=== PATIENT | male | born 1960 | race Caucasian/White ===

== ENCOUNTER 2020-03-06 22:22 | Emergency (ER) | payer OTHER ==
[~2020-03-06] VITALS: Ht 182.9 cm; Wt 82.5 kg
[~2020-03-06 22:22] MED LIST: ADVAIR 100-501 EACH INH; AMITRIPTYLINE H10 MG PO; COREG12.5 MG PO; DIAZEPAM5 MG PO; FLOVENT DISKU250 MCG INH; HUMALOG100 UNIT/1 SQ; IBUPROFEN800 MG PO; LISINOPRIL-HCT1 EAC1 PO; METFORMIN HCL500 M2 PO; NEURONTIN800 MG PO; NORCO 5-325 TA1 EACH PO; NORCO 7.5-3251 EACH PO; NOVOLOG MI100 UNIT/1 SQ; OMEPRAZOLE20 MG PO; PROMETHAZINE HC25 M1 PO; QVAR7.3 G1 INH; VENTOLIN HFA18 GM INH; VITAMIN D250000 UNIT PO
--- OUTSIDE RECORDS SUMMARY | 2020-03-06 22:26 | XMS ---
PreManage Notification: CLARK NAIK Security Computer Network Engineer Events No recent Security Events currently on file CRITERIA MET - [facility] CARE PROVIDERS There are no care providers on record at this time. Sriram has no Care Guidelines for this patient. Myron VISIT COUNT (12 MO.) 1 CATRACHITA [facility] TOTAL 1 NOTE: Visits indicate total known visits. ED/C VISIT TRACKING (12 MO.) 03/06/2020 22:23 [facility] Nava [place] TYPE: Emergency COMPLAINT: - SHORTNESS OF BREATH INPATIENT VISIT TRACKING (12 MO.) No inpatient visits to display in this time frame [id number]
== END 2020-03-06 23:15 | disposition left against medical advice (07) ==
LOC: ED 22:22
DX: R04.2 Hemoptysis (principal); R06.02 Shortness of breath; J44.9 Chronic obstructive pulmonary disease, unspecified; E11.40 Type 2 diabetes mellitus with diabetic neuropathy, unspecified; I10 Essential (primary) hypertension; F17.200 Nicotine dependence, unspecified, uncomplicated; Z88.0 Allergy status to penicillin; Z79.899 Other long term (current) drug therapy; Z79.4 Long term (current) use of insulin
CPT/HCPCS: 80053; 85025; 85610; 85730; 99283

== ENCOUNTER 2020-03-13 18:40 | Emergency (ER) | payer OTHER ==
[~2020-03-13] VITALS: Ht 182.9 cm; Wt 82.5 kg
--- OUTSIDE RECORDS SUMMARY | 2020-03-13 18:42 | XMS ---
PreManage Notification: CLARK NAIK Security Last Turner Events No recent Security Events currently on file CRITERIA MET - [facility] - 2 Visits in 30 Days CARE PROVIDERS RUDDY APARICIO Nurse Practitioner: 03/07/2020-Current PHONE: [phone] Sriram has no Care Guidelines for this patient. Care History Medical/Surgical 03/07/2020 [facility] - Patient is currently established with [facility]. If patient is seen in the ED during business hours. Please contact CHWs at [facility]. Care Recommendation: If this patient has had 5 or more Emergency Department visits in the last 12 months.\T\nbsp; Patient will require education on the scope and purpose of the ED as an acute care provider not a Primary Care Provider and should not be utilized for chronic conditions.\T\nbsp; These are guidelines and the provider should exercise clinical judgment when providing care. E.D. VISIT COUNT (12 MO.) 2 [facility] TOTAL 2 NOTE: Visits indicate total known visits. ED/UCC VISIT TRACKING (12 MO.) 03/13/2020 18:40 [facility] Nava [place] TYPE: Emergency COMPLAINT: - POSSIBLE LOW BLOOD SUGAR 03/06/2020 22:23 [facility] N[facility] [place] TYPE: Emergency COMPLAINT: - SHORTNESS OF BREATH DIAGNOSES: - Other intermediate frame tender (current) drug therapy - Hemoptysis - Type 2 diabetes mellitus with diabetic neuropathy, unspecifie - Nicotine dependence, unspecified, uncomplicated - Shortness of breath - Essential (primary) hypertension - Chronic obstructive pulmonary disease, unspecified - Allergy status to penicillin - custodial (current) use of insulin INPATIENT VISIT TRACKING (12 MO.) No inpatient visits to display in this time frame [id number]
== END 2020-03-13 22:08 | disposition home or self-care (01) ==
LOC: ED 18:40
DX: S06.0X9A Concussion with loss of consciousness of unspecified duration, initial encounter (principal); F10.129 Alcohol abuse with intoxication, unspecified; E11.65 Type 2 diabetes mellitus with hyperglycemia; E11.40 Type 2 diabetes mellitus with diabetic neuropathy, unspecified; I10 Essential (primary) hypertension; J44.9 Chronic obstructive pulmonary disease, unspecified; F17.200 Nicotine dependence, unspecified, uncomplicated; Z88.0 Allergy status to penicillin; Z91.14 Patient's other noncompliance with medication regimen; Z79.899 Other long term (current) drug therapy; Z79.4 Long term (current) use of insulin; V23.4XXA Motorcycle driver injured in collision with car, pick-up truck or van in traffic accident, initial encounter
CPT/HCPCS: 70450; 71046; 80053; 81001; 82010; 82800; 85025; 99284-25; G0480; J7030

== ENCOUNTER 2020-04-23 11:59 | Emergency (ER) | payer OTHER ==
[~2020-04-23] VITALS: Ht 182.9 cm; Wt 82.5 kg
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
== END 2020-04-23 14:46 | disposition home or self-care (01) ==
LOC: ED 11:59
PROC: 0HQ1XZZ Repair Face Skin, External Approach (ICD-10-PCS; principal; 2020-04-23)
DX: S01.81XA Laceration without foreign body of other part of head, initial encounter (principal); I10 Essential (primary) hypertension; E11.40 Type 2 diabetes mellitus with diabetic neuropathy, unspecified; J44.9 Chronic obstructive pulmonary disease, unspecified; F17.200 Nicotine dependence, unspecified, uncomplicated; Z23 Encounter for immunization; Z88.0 Allergy status to penicillin; V27.4XXA Motorcycle driver injured in collision with fixed or stationary object in traffic accident, initial encounter
CPT/HCPCS: 12013; 70450; 73030; 73080; 90471; 90715; 99284-25; A9270

== ENCOUNTER 2020-12-01 13:34 | Emergency (ER) | payer OTHER ==
[~2020-12-01] VITALS: Ht 182.9 cm; Wt 82.6 kg
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
[2020-12-01] MEDS ORDERED: JARDIANCE25 MG PO (13:51)
[2020-12-01] MEDS ORDERED: OMEPRAZOLE40 MG PO (13:52)
[2020-12-01] MEDS ORDERED: GABAPENTIN600 MG PO (13:52)
[2020-12-01] MEDS ORDERED: LISINOPRIL20 MG PO (13:52)
[2020-12-01] MEDS ORDERED: CLEOCIN HCL300 MG PO (17:40)
--- NOTE | 2020-12-02 15:39 | EKG ---
[facility] [address] [facility] [place], [place] [address] Signed Normal sinus rhythm Septal infarct , age undetermined T wave abnormality, consider anterolateral ischemia Abnormal ECG No previous ECGs available Confirmed by KAUR MANJARREZ DO ([id number]) on 12/02/2020 3:39:45 PM Electronically Signed By: KAUR MANJARREZ DO 12/02/20 1539 PATIENT NAME: CLARK NAIK Electrocardiogram DATE OF : 62 PHYSICIAN: KAUR MANJARREZ DO REPORT #: [id number] REPORT IS CONFIDENTIAL AND NOT TO BE RELEASED WITHOUT AUTHORIZATION
== END 2020-12-01 17:45 | disposition home or self-care (01) ==
LOC: ED 13:34
DX: L03.116 Cellulitis of left lower limb (principal); L03.115 Cellulitis of right lower limb; E83.42 Hypomagnesemia; J44.9 Chronic obstructive pulmonary disease, unspecified; E10.40 Type 1 diabetes mellitus with diabetic neuropathy, unspecified; I10 Essential (primary) hypertension; F17.200 Nicotine dependence, unspecified, uncomplicated; Z88.0 Allergy status to penicillin; Z79.899 Other long term (current) drug therapy
CPT/HCPCS: 71045; 73630; 80053; 83735; 83880; 84484; 85025; 93005; 93010; 96365; 99284-25; J0696

== ENCOUNTER 2020-12-11 13:43 | Emergency (ER) | payer OTHER ==
[~2020-12-11] VITALS: Ht 182.9 cm; Wt 82.5 kg
[~2020-12-11 13:43] MED LIST changes: +CLEOCIN HCL300 MG PO; +GABAPENTIN600 MG PO; +JARDIANCE25 MG PO; +LISINOPRIL20 MG PO; +OMEPRAZOLE40 MG PO
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
== END 2020-12-11 21:22 | disposition home or self-care (01) ==
LOC: ED 13:43
DX: E11.65 Type 2 diabetes mellitus with hyperglycemia (principal); R60.0 Localized edema; M62.81 Muscle weakness (generalized); J44.9 Chronic obstructive pulmonary disease, unspecified; E11.40 Type 2 diabetes mellitus with diabetic neuropathy, unspecified; I10 Essential (primary) hypertension; F17.200 Nicotine dependence, unspecified, uncomplicated; Z88.0 Allergy status to penicillin; Z79.899 Other long term (current) drug therapy; Z79.4 Long term (current) use of insulin
CPT/HCPCS: 70450; 80053; 81001; 85025; 99285-25

== ENCOUNTER 2020-12-31 22:34 | Emergency (ER) | payer OTHER ==
[~2020-12-31] VITALS: Ht 182.9 cm; Wt 82.5 kg
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
== END 2021-01-01 01:22 | disposition home or self-care (01) ==
LOC: ED 22:34
DX: F10.129 Alcohol abuse with intoxication, unspecified (principal); E83.51 Hypocalcemia; J44.9 Chronic obstructive pulmonary disease, unspecified; E11.40 Type 2 diabetes mellitus with diabetic neuropathy, unspecified; I10 Essential (primary) hypertension; Z79.4 Long term (current) use of insulin; F17.200 Nicotine dependence, unspecified, uncomplicated; Z88.0 Allergy status to penicillin; Z79.899 Other long term (current) drug therapy
CPT/HCPCS: 70450; 80053; 85025; 99284-25

== ENCOUNTER 2021-03-18 10:48 | Observation (INO) | payer OTHER ==
[~2021-03-18] VITALS: Ht 182.9 cm; Wt 74.4 kg
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
[2021-03-18] MEDS ORDERED: AMITRIPTYLINE H50 MG PO (22:42)
[2021-03-19] MEDS ORDERED: VENTOLIN HFA18 GM INH (11:09)
[2021-03-19] MEDS ORDERED: ADVAIR 250-501 EACH INH (11:10)
[2021-03-20] MEDS ORDERED: ELIQUIS5 MG PO ×2 (10:34→13:01)
[2021-03-20] MEDS ORDERED: NICODERM CQ1 EAC1 TD (10:35)
[2021-03-24] MEDS ORDERED: BACTRIM DS TAB1 EACH PO (15:29)
== END 2021-03-20 12:30 | disposition home or self-care (01) ==
LOC: ED 10:48 → CCU 10:49 → MS 03-19 11:40
PROVIDERS: ADMIT Internal Medicine; ATTEND Internal Medicine
DX: I82.491 Acute embolism and thrombosis of other specified deep vein of right lower extremity (principal); K52.9 Noninfective gastroenteritis and colitis, unspecified; D53.9 Nutritional anemia, unspecified; E11.65 Type 2 diabetes mellitus with hyperglycemia; E11.42 Type 2 diabetes mellitus with diabetic polyneuropathy; Z20.822 Contact with and (suspected) exposure to COVID-19; F10.288 Alcohol dependence with other alcohol-induced disorder; G62.1 Alcoholic polyneuropathy; K70.0 Alcoholic fatty liver; I10 Essential (primary) hypertension; J44.9 Chronic obstructive pulmonary disease, unspecified; K21.9 Gastro-esophageal reflux disease without esophagitis; G89.4 Chronic pain syndrome; R29.6 Repeated falls; F17.200 Nicotine dependence, unspecified, uncomplicated; Z79.899 Other long term (current) drug therapy; Z88.0 Allergy status to penicillin; Z79.84 Long term (current) use of oral hypoglycemic drugs
CPT/HCPCS: 70450; 74174; 80053; 83735; 84100; 85025; 85610; 85730; 87177; 93971; 96365; 96366; 96372; 97116; 97162; 97166; 99284-25; C9803; G0378; J1650; J1815; J3475; J7121; Q9967; U0003

== ENCOUNTER 2021-03-31 12:51 | Emergency (ER) | payer OTHER ==
[~2021-03-31] VITALS: Ht 182.9 cm; Wt 74.4 kg
[~2021-03-31 12:51] MED LIST changes: +ADVAIR 250-501 EACH INH; +AMITRIPTYLINE H50 MG PO; +BACTRIM DS TAB1 EACH PO; +ELIQUIS5 MG PO; +NICODERM CQ1 EAC1 TD
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
--- NOTE | 2021-04-01 07:17 | EKG ---
[facility] [address] [facility] [place] [address] Signed Normal sinus rhythm Left axis deviation Septal infarct (cited on or before 01-DEC-2020) Abnormal ECG When compared with ECG of 01-DEC-2020 14:26, T wave inversion no longer evident in Anterolateral leads Confirmed by JUDY HOSKINS MD ([id number]) on 04/01/2021 7:17:04 AM Electronically Signed By: JUDY HOSKINS MD 04/01/21 0717 PATIENT NAME: CLARK NAIK Electrocardiogram DATE OF : 62 PHYSICIAN: JUDY HOSKINS MD REPORT #: [id number] REPORT IS CONFIDENTIAL AND NOT TO BE RELEASED WITHOUT AUTHORIZATION
== END 2021-03-31 19:00 | disposition home or self-care (01) ==
LOC: ED 12:51
DX: S22.41XA Multiple fractures of ribs, right side, initial encounter for closed fracture (principal); I82.401 Acute embolism and thrombosis of unspecified deep veins of right lower extremity; E87.1 Hypo-osmolality and hyponatremia; W01.10XA Fall on same level from slipping, tripping and stumbling with subsequent striking against unspecified object, initial encounter; J44.9 Chronic obstructive pulmonary disease, unspecified; E11.40 Type 2 diabetes mellitus with diabetic neuropathy, unspecified; I10 Essential (primary) hypertension; F17.200 Nicotine dependence, unspecified, uncomplicated; Z88.0 Allergy status to penicillin; Z79.899 Other long term (current) drug therapy
CPT/HCPCS: 70450; 71045; 72100; 73560; 80053; 81001; 83690; 84484; 85025; 93005; 93010; 93971; 99284-25; U0003

== ENCOUNTER 2021-06-05 10:04 | Observation (INO) | payer OTHER ==
[~2021-06-05] VITALS: Ht 182.9 cm; Wt 69.0 kg
--- OUTSIDE RECORDS SUMMARY | 2021-06-05 10:06 | XMS ---
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 Details: AMA CRITERIA MET - [facility] - Has Care Guidelines - [facility] - 2 Visits in 30 Days - PDMP - 6 ED Visits in 6 Months CARE PROVIDERS RUDDY APARICIO Nurse Practitioner: Family 03/07/2020-Current PHONE: [phone] [place] BE [facility] 04/23/2020-Current PHONE: [phone] Sriram has no Care Guidelines for this [...] ON 06/04/2020. [place] VISIT COUNT (12 MO.) 7 [facility] TOTAL 7 NOTE: Visits indicate total known visits. ED/UCC VISIT TRACKING (12 MO.) 06/05/2021 10:05 [facility] [place] TYPE: Emergency COMPLAINT: - R THUMB WOUND 06/04/2021 15:04 [facility] [place] TYPE: Emergency COMPLAINT: - R THUMB INJURY 03/31/2021 12:51 [facility] [place] TYPE: Emergency COMPLAINT: - FALL/WEAKNESS DIAGNOSES: - Multiple fractures of ribs, right side, initial encounter for closed fracture - Fall on same level from slipping, tripping and stumbling with subsequent striking against unspecified object, initial encounter - Type 2 diabetes mellitus with diabetic neuropathy, unspecified - Other half-way (current) drug therapy - Allergy status to penicillin - Chronic obstructive pulmonary disease, unspecified - Nicotine dependence, unspecified, uncomplicated - Essential (primary) hypertension - Hypo-osmolality and hyponatremia - Acute embolism and thrombosis of unspecified deep veins of right lower extremity 03/18/2021 10:48 [facility] [place] TYPE: Emergency COMPLAINT: - R LEG SWELLING 12/31/2020 22:35 [facility] [place] TYPE: Emergency COMPLAINT: - BLOOD SUGAR PROBLEM/INTOXICATION DIAGNOSES: - Type 2 diabetes mellitus with diabetic neuropathy, unspecified - Allergy status to penicillin - Chronic obstructive pulmonary disease, unspecified - Essential (primary) hypertension - Hypocalcemia - Alcohol abuse with intoxication, unspecified - Nicotine dependence, unspecified, uncomplicated - nursing home (current) use of insulin - Other half-way (current) drug therapy 12/11/2020 13:44 [facility] [place] TYPE: Emergency COMPLAINT: - DIABETIC PROBLEM/LEGS DIAGNOSES: - Type 2 diabetes mellitus with diabetic neuropathy, unspecified - Allergy status to penicillin - Chronic obstructive pulmonary disease, unspecified - Nicotine dependence, unspecified, uncomplicated - Essential (primary) hypertension - Other terminal gauger supervisor (current) drug therapy - Weakness - Muscle weakness (generalized) - Type 2 diabetes mellitus with hyperglycemia - nursing home (current) use of insulin - Localized edema 12/01/2020 13:35 [facility] [place] TYPE: Emergency COMPLAINT: - LEG SWELLING, ABCESSES DIAGNOSES: - Chronic obstructive pulmonary disease, unspecified - Essential (primary) hypertension - Other half-way (current) drug therapy - Type 1 diabetes mellitus with diabetic nephropathy - Allergy status to penicillin - Cellulitis of left lower limb - Nicotine dependence, unspecified, uncomplicated - Other specified soft tissue disorders - Cellulitis of right lower limb - Type 1 diabetes mellitus with diabetic neuropathy, unspecified - Hypomagnesemia INPATIENT VISIT TRACKING (12 MO.) 03/18/2021 10:[address] [facility] [place] TYPE: Observation COMPLAINT: - R LEG DVT DIAGNOSES: - nursing home (current) use of oral hypoglycemic drugs - Nutritional anemia, unspecified - Type 2 diabetes mellitus with diabetic polyneuropathy - Gastro-esophageal reflux disease without esophagitis - Chronic pain syndrome - Pain in right leg - Alcoholic fatty liver - Noninfective gastroenteritis and colitis, unspecified - Other half-way (current) drug therapy - Repeated falls - Nicotine dependence, unspecified, uncomplicated - Chronic obstructive pulmonary disease, unspecified - Alcoholic polyneuropathy - Type 2 diabetes mellitus with hyperglycemia - Essential (primary) hypertension - Allergy status to penicillin - Acute embolism and thrombosis of other specified deep vein of right lower extremity - Alcohol dependence with other alcohol-induced disorder [email or web address]
[2021-06-05] MEDS ORDERED: MELOXICAM15 MG PO (10:24)
[2021-06-05] MEDS ORDERED: CHLORTHALIDONE25 MG PO (10:25)
--- NOTE | 2021-06-05 15:11 | NUR ---
PT ARRIVED TO FLOOR VIA STRETCHER. ABLE TO TRANSFER SELF. PT IS ALERT AND ORIENTED. LR AT 85 STARTED. VANCO INFUSING. VITALS TAKEN AND STABLE. ORIENTED TO ROOM. COFFE GIVEN. CALL LIGHT AND PERSONAL ITEMS WITHIN REACH
--- NOTE | 2021-06-05 16:13 | NUR ---
DR Krishnamurthy in to see patient.
[2021-06-05] MEDS ORDERED: ELIQUIS5 MG PO (16:34)
[2021-06-05] MEDS ORDERED: ALBUTEROL2.5 MG/3 M INH (17:01)
--- NOTE | 2021-06-05 17:01 | NUR ---
MED REC COMPLETE
--- NOTE | 2021-06-05 19:32 | NUR ---
RECEIVED REPORT FROM [place] AVILA. pt RESTING IN BED. ATE 100% OF DINNER. THUMB OPEN TO AIR. WHITEBOARD UPDATED. CALL LIGHT WITHIN REACH. URINAL EMPTIED OF LIGHT YELLOW URINE, TRAY CLEARED.
--- NOTE | 2021-06-05 22:30 | NUR ---
IN TO DO ASSESSMENT. MEDICATIONS GIVEN (SEE MAR). PRN PAIN MEDICATION GIVEN. pt REPORTED THROBBING IN RIGHT THUMB. ELEVATED. ASSESSMENT DONE. CLEANED HAND WITH WOUND CLEANSER. XEROFORM APPLIED, GAUZE. CALL LIGHT WITHIN REACH.
--- NOTE | 2021-06-06 00:09 | NUR ---
REDRESSED GAUZE pt HAD SPILLED MUSTARD ON IT. DRESSING TO WOUND AREA CDI. CALL LIGHT WITHIN REACH.
--- NOTE | 2021-06-06 02:58 | NUR ---
IN TO DO VITALS. pt WOKE TO VOICE. REPORTED 4/10 PAIN IN THUMB, PRN PAIN MEDICATION GIVEN (SEE MAR). ASSESSMENT DONE. NO REQUESTS AT THIS TIME. CALL LIGHT WITHIN REACH.
--- NOTE | 2021-06-06 04:50 | NUR ---
CALL LIGHT ON. IV BEEPING, ANTIBIOTIC INFUSION COMPLETED. VITALS DONE. CALL LIGHT WITHIN REACH.
--- NOTE | 2021-06-06 06:29 | NUR ---
ROUNDED ON pt. SCANT DRAINAGE NOTED TO DRESSING, CHANGED, NON ADHERENT PAD ADDED. PROVIDED COFFEE. CALL LIGHT WITHIN REACH.
--- NOTE | 2021-06-06 07:45 | NUR ---
Report received from prior authorization nurse. Patient alert and oriented, interactive, sitting up in bed. States ready for breakfast. call light and side table in reach with water.
--- NOTE | 2021-06-06 10:00 | NUR ---
patient reports having increased pain, will give prn pain medications. Also would like to have dressing replaced as it is starting to slip off.
--- NOTE | 2021-06-06 11:29 | NUR ---
PT ALERT, ORIENTED AND SEEMS INTERESTED IN INTERACTING WITH VISIT. PT SHARED THE STORY OF HIS INJURY, FEELS WELL CARED FOR. LEFT G.POST, HAD PRAYER WITH PT. WILL FOLLOW NEEDED
--- NOTE | 2021-06-06 14:24 | NUR ---
CLEANSED RIGHT THUMB WOUND, PLACED XEROFORM AND NON ADHERENT DRESSING AND WRAPPED WITH GAUZE.
--- NOTE | 2021-06-06 16:30 | NUR ---
RESTING IN BED, NO REQUESTS OR COMPLAINTS. CALL LIGHT AND WATER AND BEDSIDE TABLE IN REACH.
--- NOTE | 2021-06-06 18:51 | NUR ---
PRN PAIN MEDICATION RECENTLY GIVEN PO. PATIENT LAYING IN BED WITH HOB UP. WATCHING TV.
--- NOTE | 2021-06-06 19:00 | NUR ---
SHIFT REPORT RECEIVED FROM GONZALOHIKANIKA BERNARDO AT BEDSIDE. pt AWAKE AND RESTING IN BED. DRESSING TO RIGHT THUMB IN PLACE, WILL MONITOR. pt SALINE LOCKED, IV SITE WNL. NO FURTHER NEEDS, CALL LIGHT IN REACH.
--- NOTE | 2021-06-06 20:25 | NUR ---
in to get vitals, urinal emptied, fresh ice chips perfered in cup, trash emptied, no further needs at this time
--- NOTE | 2021-06-06 20:58 | NUR ---
ASSESSMENT COMPLETE, SCHEDULED EMEDS GIVEN. pt REPORTS TOLERABLE 6/10 PAIN IN RIGHT THUMB, DISCUSSED AVAILABILITY OF NEXT PAIN MEDICATION. pt VERBALIZED UNDERSTANDING. VS AND I&O'S COMPLETE AND STABLE. CRM TECHNICAL LEAD KOSTA IN ROOM TO ASSESS RIGHT THUMB. IV SITE WNL, FLUSHES EASILY. CALL LIGHT IN REACH.
--- NOTE | 2021-06-07 00:15 | NUR ---
ROUNDING ON pt, pt RESTING IN BED WITH EYES CLOSED. RR EVEN AND UNLABORED. SCHEDULED IV VANCO RECENTLY HUNG BY MARGARITA BRAMBILA. pt APPEARS COMFORTABLE AND RELAXED. CALL LIGHT IN REACH.
--- NOTE | 2021-06-07 02:35 | NUR ---
in to provide warm blankets, coffee, iv alarming, rn informed, urinal emptied over 1000mls
--- NOTE | 2021-06-07 02:45 | NUR ---
IN ROOM TO ROUND ON pt, pt DROWSY BUT AWOKE TO VOICE. pt SALINE LOCKED, IV SITE REDRESSED, FLUSHES EASILY. REMAINS WNL. RIGHT THUMB DRESSING PARTIALLY REMOVED, pt STATES, "I DON'T KNOW WHAT HAPPENED". NEW NONADHERENT PAD WITH GAUZE/KERLEX DRESSING IN PLACE. ASSESSMENT COMPLETE, pt REPORTS 6/10 PAIN. PRN PAIN MEDICATION GIVEN. NO FURTHER NEEDS, CALL LIGHT IN REACH.
--- NOTE | 2021-06-07 03:02 | NUR ---
in to provide more warm blankets, coffee, emptied urinal, no furthe rneeds at this time
--- NOTE | 2021-06-07 07:55 | NUR ---
Awake and alert this AM. Breakfast to patient. States pain not too bad in thumb. Likely to have a shower and DC to home today.
--- NOTE | 2021-06-07 10:00 | NUR ---
PT WITH LOW BLOOD SUGAR. DR MANJARREZ NOTIFIED. ORDERS TO HOLD LONG ACTING INSULIN AND DR WILL REASSESS MEDICAITON ORDERS.
--- NOTE | 2021-06-07 10:00 | NUR ---
NEB TREATMENT JUST FINISHING UP WITH RT.
--- NOTE | 2021-06-07 12:37 | NUR ---
SITTING ON SIDE OF BED EATING LUNCH. GETTING READY FOR A SHOWER.
[2021-06-07] MEDS ORDERED: OXYCODONE HCL5 MG PO (14:28)
[2021-06-07] MEDS ORDERED: DOXYCYCLINE HY100 MG PO (14:30)
== END 2021-06-07 16:39 | disposition home or self-care (01) ==
LOC: ED 10:04 → MS 10:06
PROVIDERS: ADMIT Internal Medicine; ATTEND Internal Medicine
DX: L03.011 Cellulitis of right finger (principal); J44.9 Chronic obstructive pulmonary disease, unspecified; G89.4 Chronic pain syndrome; I10 Essential (primary) hypertension; E10.40 Type 1 diabetes mellitus with diabetic neuropathy, unspecified; E87.1 Hypo-osmolality and hyponatremia; F17.200 Nicotine dependence, unspecified, uncomplicated; Z79.4 Long term (current) use of insulin; Z88.0 Allergy status to penicillin; Z86.718 Personal history of other venous thrombosis and embolism; Z79.01 Long term (current) use of anticoagulants; Z20.822 Contact with and (suspected) exposure to COVID-19
CPT/HCPCS: 73140; 80048; 80053; 80202; 82010; 82803; 83036; 83605; 84295; 85025; 85651; 90686; 94640; 99406; A9270; C9803; J0696; J1170; J1815; J2405; J3370; J7060; J7121; U0003

== ENCOUNTER 2021-06-15 12:28 | Emergency (ER) | payer OTHER ==
[~2021-06-15] VITALS: Ht 182.9 cm; Wt 71.9 kg
[~2021-06-15 12:28] MED LIST changes: +ALBUTEROL2.5 MG/3 M INH; +CHLORTHALIDONE25 MG PO; +DOXYCYCLINE HY100 MG PO; +MELOXICAM15 MG PO; +OXYCODONE HCL5 MG PO
--- OUTSIDE RECORDS SUMMARY | 2021-06-15 12:30 | XMS ---
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 Details: AMA CRITERIA MET - PDMP - [facility] - 2 Visits in 30 Days - [facility] - Has Care Guidelines - 6 ED Visits in 6 Months CARE PROVIDERS RUDDY APARICIO Nurse Practitioner: Family 03/07/2020-Current PHONE: [phone] [place] BE [facility] 04/23/2020-Current PHONE: [phone] Sriram has no Care Guidelines for this patient. Care History Medical/Surgical 12/02/2020 [facility] - RECEIVED CASE MANAGEMENT CONSULT- HELP PATIENT WITH PODIATRY FOLLOW UP AND PT FOLLOW UP. - SENT REQUEST TO CLINIC [facility]\T\#39;S FOR CLOSE FOLLOW UP PER REQUEST. 04/24/2020 [facility] Patient not currently established with Clinic provider.\T\nbsp; Patient has visit scheduled with Dr. Be on 06/04/2020 to establish care with PCP. 04/23/2020 [facility] - PATIENT HAS AN ESTABLISHING CARE APT WITH DR BE ON 06/04/2020. [place] [facility] NOTE: Visits indicate total known visits. ED/UCC VISIT TRACKING (12 MO.) 06/15/2021 12:29 [facility] [place] COMPLAINT: - SKIN PROBLEM 06/05/2021 10:05 [facility] [place] TYPE: Emergency COMPLAINT: - [...] mellitus with diabetic neuropathy, unspecified - Other retirement (current) drug therapy - Allergy status to penicillin - Chronic obstructive pulmonary disease, unspecified - Nicotine dependence, unspecified, uncomplicated - Essential (primary) hypertension - Hypo-osmolality and hyponatremia - Acute embolism and thrombosis of unspecified deep veins of right lower extremity 03/18/2021 10:48 [facility] [place] TYPE: Emergency COMPLAINT: - R LEG SWELLING 12/31/2020 22:35 [facility] [place] TYPE: Emergency COMPLAINT: - BLOOD SUGAR PROBLEM/INTOXICATION DIAGNOSES: - Type 2 diabetes mellitus with diabetic neuropathy, unspecified - Allergy status to penicillin - Chronic obstructive pulmonary disease, unspecified - Essential (primary) hypertension - Hypocalcemia - Alcohol abuse with intoxication, unspecified - Nicotine dependence, unspecified, uncomplicated - jail (current) use of insulin - Other long term care phlebotomist (current) drug therapy 12/11/2020 13:44 [facility] [place] TYPE: Emergency COMPLAINT: - DIABETIC PROBLEM/LEGS DIAGNOSES: - Type 2 diabetes mellitus with diabetic neuropathy, unspecified - Allergy status to penicillin - Chronic obstructive pulmonary disease, unspecified - Nicotine dependence, unspecified, uncomplicated - Essential (primary) hypertension - Other retirement (current) drug therapy - Weakness - Muscle weakness (generalized) - Type 2 diabetes mellitus with hyperglycemia - jail (current) use of insulin - Localized edema 12/01/2020 13:35 [facility] [place] TYPE: Emergency COMPLAINT: - LEG SWELLING, ABCESSES DIAGNOSES: - Chronic obstructive pulmonary disease, unspecified - Essential (primary) hypertension - Other retirement (current) drug therapy - Type 1 diabetes mellitus with diabetic nephropathy - Allergy status to penicillin - Cellulitis of left lower limb - Nicotine dependence, unspecified, uncomplicated - Other specified soft tissue disorders - Cellulitis of right lower limb - Type 1 diabetes mellitus with diabetic neuropathy, unspecified - Hypomagnesemia INPATIENT VISIT TRACKING (12 MO.) 06/05/2021 10:06 [facility] [place] TYPE: Observation COMPLAINT: - R THUMB CELLULITIS DIAGNOSES: - Chronic pain syndrome - Essential (primary) hypertension - Type 1 diabetes mellitus with diabetic neuropathy, unspecified - Nicotine dependence, unspecified, uncomplicated - termite helper (current) use of insulin - Allergy status to penicillin - jail (current) use of anticoagulants - Personal history of other venous thrombosis and embolism - Cellulitis of right finger - Chronic obstructive pulmonary disease, unspecified - Hypo-osmolality and hyponatremia 03/18/2021 10:[address] [facility] [place] TYPE: Observation COMPLAINT: - R LEG DVT DIAGNOSES: - termite helper (current) use of oral hypoglycemic drugs - Nutritional anemia, unspecified - Type 2 diabetes mellitus with diabetic polyneuropathy - Gastro-esophageal reflux disease without esophagitis - Chronic pain syndrome - Pain in right leg - Alcoholic fatty liver - Noninfective gastroenteritis and colitis, unspecified - Other retirement (current) drug therapy - Repeated falls - Nicotine dependence, unspecified, uncomplicated - Chronic obstructive pulmonary disease, unspecified - Alcoholic polyneuropathy - Type 2 diabetes mellitus with hyperglycemia - Essential (primary) hypertension - Allergy status to penicillin - Acute embolism and thrombosis of other specified deep vein of right lower extremity - Alcohol dependence with other alcohol-induced disorder [email or web address]
[2021-06-15] MEDS ORDERED: DOXYCYCLINE MO100 MG PO (14:04)
== END 2021-06-15 13:29 | disposition home or self-care (01) ==
LOC: ED 12:28
DX: Z48.817 Encounter for surgical aftercare following surgery on the skin and subcutaneous tissue (principal); J44.9 Chronic obstructive pulmonary disease, unspecified; I10 Essential (primary) hypertension; E10.40 Type 1 diabetes mellitus with diabetic neuropathy, unspecified; F17.200 Nicotine dependence, unspecified, uncomplicated; Z88.0 Allergy status to penicillin; Z79.01 Long term (current) use of anticoagulants; Z79.899 Other long term (current) drug therapy
CPT/HCPCS: 99282